=== PATIENT | male | born 1945 | race Caucasian/White ===

== ENCOUNTER 2017-02-02 23:53 | Inpatient (IN) ==
[2017-02-03 00:54] LABS: Bilirubin,Urine Negative (Negative); Blood,Urine Large (Negative); Clarity,Urine Clear (Clear); Color,Urine Yellow (Yellow); Glucose,Urine (UA) Normal (Normal); Ketones,Urine 15 mg/dL (Negative); Leukocyte Esterase,Urine Negative (Negative); Nitrite,Urine Negative (Negative); PH,Urine 5.5 pH Units (5.0-8.0); Protein,Urine Negative (Neg-Trace); Specific Gravity,Urine 1.022 (1.010-1.025); Urobilinogen,Urine Normal (Normal)
[2017-02-03 00:55] LABS: Bacteria,Urine None Seen per hpf (None-Few); Hyaline Casts,Urine None Seen per lpf (None-Few); RBC,Urine 50-100 per hpf (0-3); Squamous Epithelial Cell,Urine Few per lpf (None-Few); WBC,Urine 0-3 per hpf (0-3)
[2017-02-03 01:10] LABS: Basophils # 0.1 K/mcL (0.0-0.2); Basophils % 0.3 %; Eosinophils % 0.1 %; Hematocrit 46.1 % (37.5-50.1); Hemoglobin 15.3 g/dL (12.9-16.9); Immature Granulocytes % 0.5 % (0-4); Lymphocytes # 1.3 K/mcL (0.6-4.6); Lymphocytes % 7.2 %; Mean Corpuscular HGB Conc 33.2 g/dL (31.6-35.5); Mean Corpuscular Hemoglobin 30.5 pg (28.0-33.3); Mean Corpuscular Volume 91.8 fL (83.0-100.0); Mean Platelet Volume 8.6 fL (9.4-12.4); Monocytes # 0.7 K/mcL (0.0-1.3); Monocytes % 3.8 %; Neutrophils # 15.6 K/mcL (1.6-8.9); Platelet Count 275 K/mcL (140-400); Red Blood Count 5.02 M/mcL (4.19-5.50); Red Cell Distribution Width 12.6 % (11.5-14.5); Segmented Neutrophils % 88.1 %
[2017-02-03 01:25] LABS: Alanine Aminotransferase 16 Units/L (0-55); Albumin 4.1 g/dL (3.5-5.0); Albumin/Globulin Ratio 1.2 (1.1-2.2); Alkaline Phosphatase 95 Units/L (38-126); Aspartate Amino Transferase 19 Units/L (5-34); BUN/Creatinine Ratio 17 (6-26); Bilirubin,Direct 0.2 mg/dL (0.0-0.5); Bilirubin,Indirect 0.2 mg/dL (0.0-1.2); Bilirubin,Total 0.4 mg/dL (0.2-1.2); Blood Urea Nitrogen 19 mg/dL (8-26); Carbon Dioxide 20 mEq/L (19-29); Chloride 103 mEq/L (98-109); Globulin 3.5 g/dL (2.4-3.5); Glucose 190 mg/dL (70-99); Lipase 33 Units/L (8-78); Osmolality,Calculated 291 (280-300); Potassium 5.3 mEq/L (3.5-4.5); Sodium 137 mEq/L (136-145); Total Protein 7.6 g/dL (6.0-8.3); eGFR For African Americans > 60 (> 60); eGFR For Non-African Americans > 60 (> 60)
[2017-02-03] MEDS ORDERED: Ondansetron 4 MG/2 ML VIAL IVP ONE (01:38)
[2017-02-03] MEDS ORDERED: *HR* HYDROmorphone (PF) 1 MG/ML SYRINGE IVP ONE (01:38)
--- NOTE | 2017-02-03 01:44 | Emergency Department Note ---
Disposition Clinical Impression: Renal colic on left side, Calculus of left ureter Disposition: Admitted As Inpatient Condition: Fair Referrals: Silvia Flanagan MD [Primary Care Provider] - Forms: Work/School Release, ED Satisfaction Letter Time of Disposition: 03:04 General Adult HPI - General Chief complaint: ED Abdominal Pain Stated complaint: abd pain Time Seen by Provider: 02/03/17 00:59 Source: patient Mode of arrival: ambulatory Limitations: no limitations Nursing Notes Reviewed: Yes Vital Signs Reviewed: Yes - History of Present Illness HPI Narrative: Patient is a 71-year-old male with past medical history of insulin dependent diabetes, hypertension, hyperlipidemia, kidney stones presents with complaint of diffuse abdominal pain that started yesterday evening around 8 PM after having dinner. He states the pain came on suddenly and describes it as a severe aching pain that is diffuse with some radiation to the left side of his back. He states he also had 4 episodes of nausea and vomiting denies any blood in his vomit. Since the pain is about 10 out of 10. His pain does not feel similar to his kidney stones in the past, however he was admitted for his prior kidney stones treated in the hospital for an infection. Surgical history includes hernia repair in the 80s. Denies anything that makes the pain better or worse. Pain Scale: 10 - Related Data Allergies Allergy/AdvReac Type Severity Reaction Status Date / Time No Known Allergies Allergy Verified 02/03/17 00:10 All systems ED: reviewed and negative except as stated. Constitutional: Denies: fever, chills Cardiovascular: Denies: chest pain, palpitations Respiratory: Denies: cough, dyspnea, wheezes Gastrointestinal: Reports: abdominal pain, nausea, vomiting. Denies: diarrhea, constipation, hematemesis, melena, hematochezia Genitourinary: Denies: urgency, dysuria, frequency, hematuria Musculoskeletal: Reports: back pain Integumentary: Denies: rash Past Medical History - Past Medical History Medical history: Reports: diabetes, hyperlipidemia, hypertension Psychiatric history: Reports: no psych history - Social History Smoking Status: Never smoker Alcohol use: Reports: none Drug use: Reports: none Physical Exam Patient is sitting in bed in no acute distress. He does appear to be in mild to moderate pain and is holding pressure on his abdomen with both of his hands. He is speaking in full sentences. - General Limitations: no limitations General appearance: alert, in no apparent distress - Head Head exam: atraumatic, normocephalic, normal inspection - Eye Eye exam: Present: normal appearance, PERRL, EOMI - ENT ENT exam: normal exam, normal oropharynx, mucous membranes dry - Neck Neck exam: Present: normal inspection, full ROM, trachea midline. Absent: tenderness - Chest Chest inspection: Present: normal inspection, symmetric chest wall rise. Absent : tenderness - Respiratory Respiratory exam: Present: normal lung sounds bilaterally. Absent: respiratory distress - Cardiovascular Cardiovascular exam: Present: regular rate, normal rhythm, normal heart sounds - Abdominal Exam Abdominal exam: Present: soft, tenderness, normal bowel sounds. Absent: guarding, rebound, rigidity Abdominal tenderness: Present: suprapubic, diffuse, mild - Extremities Exam Extremities exam: Present: normal inspection, full ROM, normal capillary refill. Absent: tenderness, pedal edema - Expanded Lower Extremity Exam Neurovascular/Tendon exam: Present: normal capillary refill. Absent: pulse deficit - Back Exam Back exam: Present: normal inspection, full ROM. Absent: tenderness, CVA tenderness (R), CVA tenderness (L) - Neurological Exam Neurological exam: Present: alert, oriented X3 - Psychiatric Psychiatric exam: Present: normal affect, normal mood - Skin Skin exam: Present: warm, dry, intact, normal color. Absent: diaphoresis Course Course Narrative: Patient is a 71-year-old male with past medical history of diabetes, hypertension, hypokalemia, kidney stones presents with a complaint of diffuse aching abdominal pain has been constant started yesterday evening at 8 PM after eating a meal. So far his lab work from triage physician: Blood in his urine. Has an elevated white blood cell count at 17.7. Plan is to order a CT of the abdomen and pelvis without contrast to rule out possible kidney stone for other etiologies of the patient's pain. Also treat him for his pain and nausea while he is in the emergency department. - Reevaluation(s) Reevaluation #1: Patient states his pain initially improved and is given his first dose of Dilaudid however now is pain in his back to an 8 out of 10. Discussed with him his CT results showing a 5 mm x 9 mm stone in his left ureter at the uretopelvic junction. Discussed with him that his white count is elevated however this may be due to the inflammation and the hydronephrosis and is being caused by the stone. His urine does not show any signs of infection. Plan is to admit the patient for pain control patient agrees with this plan. Time: 02:46 Reevaluation #2: I spoke with Dr. Aroldo Wick. He states he will accept the patient and have neurology see the patient in the morning and control his pain tonight. Time: 03:05 Vital Signs Temperature 98 F 02/03/17 00:06 Pulse Rate 61 02/03/17 00:06 Respiratory Rate 20 02/03/17 00:06 Blood Pressure 148/63 02/03/17 00:06 O2 Sat by Pulse Oximetry 98 02/03/17 00:06 Temperature 98 F 02/03/17 00:06 Pulse Rate 82 02/03/17 02:10 Respiratory Rate 18 02/03/17 02:10 Blood Pressure 142/78 02/03/17 02:10 O2 Sat by Pulse Oximetry 98 02/03/17 02:10 Oxygen Delivery Oxygen Delivery Room Air Medical Decision Making - Medical Records Medical records reviewed: Yes I reviewed the patient's medical records. - Lab Data Lab results reviewed: Yes I reviewed the patient's lab results. Result diagrams: 02/03/17 00:54 02/03/17 00:54 Lab Results 02/03/17 02/03/17 02/03/17 Range/Units 00:32 00:53 00:54 WBC 17.7 H (4.3-11.1) K/mcL RBC 5.02 (4.19-5.50) M/mcL Hgb 15.3 (12.9-16.9) g/dL Hct 46.1 (37.5-50.1) % MCV 91.8 (83.0-100.0) fL MCH 30.5 (28.0-33.3) pg MCHC 33.2 (31.6-35.5) g/dL RDW 12.6 (11.5-14.5) % Plt Count 275 (140-400) K/mcL MPV 8.6 L (9.4-12.4) fL Immature Gran % 0.5 (0-4) % Seg Neutrophils % 88.1 % Lymphocytes % 7.2 % Monocytes % 3.8 % Eosinophils % 0.1 % Basophils % 0.3 % Neutrophils # 15.6 H (1.6-8.9) K/mcL Lymphocytes # 1.3 (0.6-4.6) K/mcL Monocytes # 0.7 (0.0-1.3) K/mcL Eosinophils # 0.0 (0.0-0.6) K/mcL Basophils # 0.1 (0.0-0.2) K/mcL Sodium (136-145) mEq/L Potassium (3.5-4.5) mEq/L Chloride (98-109) mEq/L Carbon Dioxide (19-29) mEq/L BUN (8-26) mg/dL Creatinine (0.72-1.25) mg/dL Est GFR ( Amer) (> 60) Est GFR (Non-Af Amer) (> 60) BUN/Creatinine Ratio (6-26) Glucose (70-99) mg/dL POC Glucose 184 H (58-89) Calculated Osmolality (280-300) Calcium (8.6-10.8) mg/dL Total Bilirubin (0.2-1.2) mg/dL Direct Bilirubin (0.0-0.5) mg/dL Indirect Bilirubin (0.0-1.2) mg/dL AST (5-34) Units/L ALT (0-55) Units/L Alkaline Phosphatase (38-126) Units/L Troponin I (0-0.03) ng/mL Serum Total Protein (6.0-8.3) g/dL Albumin (3.5-5.0) g/dL Globulin (2.4-3.5) g/dL Albumin/Globulin Ratio (1.1-2.2) Lipase (8-78) Units/L Urine Color Yellow (Yellow) Urine Clarity Clear (Clear) Urine pH 5.5 (5.0-8.0) pH Units Ur Specific [place] 1.022 (1.010-1.025) Urine Protein Negative (Neg-Trace) mg/dL Urine Glucose (UA) Normal (Normal) mg/dL Urine Ketones 15 H (Negative) mg/dL Urine Blood Large H (Negative) Urine Nitrite Negative (Negative) Urine Bilirubin Negative (Negative) Urine Urobilinogen Normal (Normal) mg/dL Ur Leukocyte Esterase Negative (Negative) Urine Microscopic RBC 50-100 H (0-3) per hpf Urine Microscopic WBC 0-3 (0-3) per hpf Ur Squamous Epith Cells Few (None-Few) per lpf Urine Bacteria None Seen (None-Few) per hpf Hyaline Casts None Seen (None-Few) per lpf Ur Culture Indicated? NO (NO) 02/03/17 02/03/17 Range/Units 00:54 00:54 WBC (4.3-11.1) K/mcL RBC (4.19-5.50) M/mcL Hgb (12.9-16.9) g/dL Hct (37.5-50.1) % MCV (83.0-100.0) fL MCH (28.0-33.3) pg MCHC (31.6-35.5) g/dL RDW (11.5-14.5) % Plt Count (140-400) K/mcL MPV (9.4-12.4) fL Immature Gran % (0-4) % Seg Neutrophils % % Lymphocytes % % Monocytes % % Eosinophils % % Basophils % % Neutrophils # (1.6-8.9) K/mcL Lymphocytes # (0.6-4.6) K/mcL Monocytes # (0.0-1.3) K/mcL Eosinophils # (0.0-0.6) K/mcL Basophils # (0.0-0.2) K/mcL Sodium 137 (136-145) mEq/L Potassium 5.3 H (3.5-4.5) mEq/L Chloride 103 (98-109) mEq/L Carbon Dioxide 20 (19-29) mEq/L BUN 19 (8-26) mg/dL Creatinine 1.15 (0.72-1.25) mg/dL Est GFR ( Amer) > 60 (> 60) Est GFR (Non-Af Amer) > 60 (> 60) BUN/Creatinine Ratio 17 (6-26) Glucose 190 H (70-99) mg/dL POC Glucose (58-89) Calculated Osmolality 291 (280-300) Calcium 10.0 (8.6-10.8) mg/dL Total Bilirubin 0.4 (0.2-1.2) mg/dL Direct Bilirubin 0.2 (0.0-0.5) mg/dL Indirect Bilirubin 0.2 (0.0-1.2) mg/dL AST 19 (5-34) Units/L ALT 16 (0-55) Units/L Alkaline Phosphatase 95 (38-126) Units/L Troponin I 0.01 (0-0.03) ng/mL Serum Total Protein 7.6 (6.0-8.3) g/dL Albumin 4.1 (3.5-5.0) g/dL Globulin 3.5 (2.4-3.5) g/dL Albumin/Globulin Ratio 1.2 (1.1-2.2) Lipase 33 (8-78) Units/L Urine Color (Yellow) Urine Clarity (Clear) Urine pH (5.0-8.0) pH Units Ur Specific [place] (1.010-1.025) Urine Protein (Neg-Trace) mg/dL Urine Glucose (UA) (Normal) mg/dL Urine Ketones (Negative) mg/dL Urine Blood (Negative) Urine Nitrite (Negative) Urine Bilirubin (Negative) Urine Urobilinogen (Normal) mg/dL Ur Leukocyte Esterase (Negative) Urine Microscopic RBC (0-3) per hpf Urine Microscopic WBC (0-3) per hpf Ur Squamous Epith Cells (None-Few) per lpf Urine Bacteria (None-Few) per hpf Hyaline Casts (None-Few) per lpf Ur Culture Indicated? (NO) - Radiology Data Radiology results reviewed: Yes I reviewed the patient's radiology results. Abdomen/Pelvis CT 02/03/17 01:39 IMPRESSION: Left-sided hydronephrosis and perinephric stranding with stones in the left kidney and at the left ureteropelvic junction. Diverticulosis without scan evidence for diverticulitis. D/ / John Villagomez MD / John Villagomez MD Interpreting Provider: John Villagomez MD - EKG Data EKG #1 EKG attestation: Yes I reviewed and interpreted this EKG. EKG results narrative: Operative this EKG. It was performed at 00:11. The patient has EKG there is sinus rhythm with sinus arrhythmia at a rate of 65. NH is 158, QRS is 113, QT is 435, QTC is 447 is all within normal limits. Patient's EKG is normal axis. No ST elevation or depression or Q waves present. No signs of infarction or ischemia. No old EKG for comparison Attestation Statement - Attestation Attestation: I personally interviewed and examined this patient and my medical decision- making was reviewed with the Resident Physician, Dr. Monte. I agree with the documented findings, disposition and treatment plan as described except to the extent set forth below. She is a 71-year-old white male with a remote history of kidney stones who presents to the emergency department with complaints of suprapubic abdominal pain as well as left flank pain. Pain began tonight approximately 8 PM sudden onset sharp and at times presentation was complaining of 10-10 pain associated with some nausea and vomiting. Patient denies any fevers or chills, no urinary symptoms no hematuria and no difficulty urinating. Patient denies any chest pain or pressure or shortness of breath no diaphoresis no other associated symptoms. Patient had labs drawn and ordered from triage was given pain control upon being brought back to the main side labs show a leukocytosis, normal renal function in large microscopic hematuria. Patient was given pain control via IV and sent for CAT scan for further evaluation of suspected renal colic secondary to kidney stone. CT scan was interpreted by radiology showing moderate hydro-on the left with a 5 x 9 mm calcification at the UPJ. Patient went with no evidence of infection in the urine. On reevaluation patient was complaining of recurrent 9 out of 10 left abdominal pain. We will premedicate patient and due to large size of stone as well as patient's ongoing pain we will admit for intractable renal colic. Case was discussed with hospitalist who accepted patient for admission for further evaluation.
[2017-02-03] MEDS ORDERED: 0.9 % Sodium Chloride 500 ML IVC ONE (01:45)
[2017-02-03] MEDS ORDERED: Ketorolac 15 MG/ML VIAL IVP ONE (02:31)
[2017-02-03] MEDS ORDERED: *HR* HYDROmorphone (PF) 1 MG/ML SYRINGE IVP PRN (03:27)
[2017-02-03] MEDS ORDERED: Naloxone 0.4 MG/ML INJ IVP PRN (03:27)
[2017-02-03] MEDS ORDERED: Ringers Solution, Lactated 1,000 ML IVC SCH (03:30)
--- NOTE | 2017-02-03 03:42 | Internal Med History&Physical ---
Date of Encounter: 02/03/17 Time of Encounter: 03:37 Assessment and Plan (1) Calculus of left ureter Current visit: Yes Status: Acute IVF. Rocephin empiric IV antibiotics due to perinephric stranding. Consult urology in the a.m - non emergent. Will place NPO in case procedure is planned (2) Renal colic on left side Current visit: Yes Status: Acute IV morphine, dilaudid for severe pain (3) DMII (diabetes mellitus, type 2) Current visit: Yes Status: Acute discussed checking CBG regularly. Instructed patient to stop mealtime bolus. 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 non-essential for now Qualifiers: Hyperlipidemia type: pure hypercholesterolemia Qualified Code(s): E78.00 - Pure hypercholesterolemia, unspecified; E78.0 - Pure hypercholesterolemia Internal Medicine - H&P: HPI Chief complaint: Left side abdominal pain History of present illness: Mr. Gilliam is a 71 year old male with hx of IDDM with insulin pump, HTN, HLD who presents with left renal colic with stones, perinephric stranding suspicious for pyelonephritis and moderate hydronephrosis. He developed epigastric region discomfort which radiated to left sided abdominal pain after supper last evening. Initially felt like a gas pain and took some gasX. No N/V. Reports hx of kidney stones 25-30 years ago. In the ED, found to have 9mm left renal stone with moderate hydro and also perinephric stranding. Past Med Surg Social Fam HX - Past Medical History Medical history: diabetes, hyperlipidemia, hypertension Psychiatric history: no psych history - Social History Smoking Status: Never smoker Alcohol use: none Drug use: none Internal Medicine - H&P: Meds Allergies No Known Allergies Allergy (Verified 02/03/17 00:10) All Systems PM: A 10-system review of systems was performed and is negative for pertinent findings except as documented above in the HPI. Review of systems: ROS 14 point review of systems reviewed as best as possible given presentation. Pertinent positive or negative as per HPI or otherwise reviewed as negative - Constitutional Vitals: Temp Pulse Resp BP Pulse Ox 0 F L 82 0 0/0 98 02/03/17 03:27 02/03/17 02:10 02/03/17 03:27 02/03/17 03:27 02/03/17 02:10 Exam: General - AAO x 3 Psych - Appropriate affect/speech. No agitation Eyes - CASS. Eye lids intact. No scleral icterus ENT - Oral mucosa pink, dentition intact. External ear clear/dry/intact. No thyromegaly Lymphatics - No cervical/inguinal lympadenopathy Neuro - No gross peripheral or central neuro deficits with intact CN 2-12 exam Heart - Sinus. RRR. S1 and S2 present. No added HS/murmurs appreciated. No elevated JVD appreciated. No calf swellings/erythema Lung - Adequate air entry b/l, No crackes/wheezes appreciated GI - left-sided abdominal pain, no guarding or rigidity , insulin pump present. No hepatosplenomegaly/ascities. BS+ - No CVA/suprapubic tenderness or palpable bladder distension Skin - Intact. No rash/petechiae/ecchymosis. Warm extremities MSK - Joints with normal ROM. No joint swellings Internal Med - H&P Results - Labs CBC & Chem 7: 02/03/17 00:54 02/03/17 00:54
[2017-02-03] MEDS ORDERED: *HR* Enoxaparin 30 MG/0.3 ML SYRINGE SQ SCH (06:00)
[2017-02-03] MEDS: *HR* Morphine 2 MG/ML SYRINGE IVP PRN ×2 (06:18→14:31)
[2017-02-03 06:59] LABS: Hematocrit 42.7 % (37.5-50.1); Hemoglobin 14.1 g/dL (12.9-16.9); Immature Platelets 1.3 % (1.1-6.1); Mean Corpuscular Hemoglobin 30.3 pg (28.0-33.3); Mean Corpuscular Volume 91.6 fL (83.0-100.0); Mean Platelet Volume 8.7 fL (9.4-12.4); Red Blood Count 4.66 M/mcL (4.19-5.50); Red Cell Distribution Width 12.7 % (11.5-14.5)
[2017-02-03 07:10] LABS: BUN/Creatinine Ratio 17 (6-26); Blood Urea Nitrogen 22 mg/dL (8-26); Calcium 9.1 mg/dL (8.6-10.8); Carbon Dioxide 24 mEq/L (19-29); Chloride 104 mEq/L (98-109); Glucose 206 mg/dL (70-99); Osmolality,Calculated 289 (280-300); Sodium 135 mEq/L (136-145); eGFR For African Americans > 60 (> 60); eGFR For Non-African Americans 56 (> 60)
[2017-02-03 07:21] LABS: Potassium 6.4 mEq/L (3.5-4.5)
--- NOTE | 2017-02-03 08:58 | Urology - Consult Note ---
Date of Encounter: 02/03/17 Time of Encounter: 08:56 - Assessment and Plan (1) Hydronephrosis Current Visit: Yes Status: Acute Assessment and plan: Plan on patient continue with IV fluids and IV antibiotics. We will plan on scheduling the patient for cystoscopy left ureteral stent placement and possible left ESWL tomorrow in the operating room. Qualifiers: Hydronephrosis type: with renal calculous obstruction Qualified Code(s): N13.2 - Hydronephrosis with renal and ureteral calculous obstruction (2) Calculus of left ureter Current Visit: Yes Status: Acute Assessment and plan: Pain is currently controlled. Please see assessment as above. Urology CN:HPI Consult date: 02/03/17 Reason for consult Urology: Hydronephrosis Requesting physician: Nika Wick History of present illness: Paul is a 71-year-old male who came to the emergency Department yesterday secondary to severe left-sided abdominal pain. Patient was found on CT scan to have a left UPJ 8 mm stone as well as a left renal 8 mm stone. Patient states that he had a stone approximately 15-20 years ago which passed on its own. Patient did have an elevated WBC count upon arrival to the hospital. This has improved with fluids and antibiotics. Patient denies any nausea or vomiting at this time. No fevers. Past Med Surg Social Fam HX - Past Medical History Medical history: diabetes, hyperlipidemia, hypertension, kidney stones Psychiatric history: no psych history - Past Surgical History Surgical History: herniorrhaphy - Social History Smoking Status: Never smoker Smokeless Tobacco Status: No Alcohol use: none Drug use: none - Family History Grandmother Hx Family Endocrine Disorder: Yes (diabetes) Medications and Allergies Aspirin [Lo-Dose Aspirin EC] 81 mg PO DAILY 02/03/17 [History] Atorvastatin [Lipitor] 5 mg PO HS 02/03/17 [History] Insulin LISPRO [HumaLOG] 30 - 40 units SQ DAILY 02/03/17 [History] Lisinopril [Zestril] 10 mg PO DAILY 02/03/17 [History] Metformin HCl [Glucophage] 1,000 mg PO BID 02/03/17 [History] Allergies No Known Allergies Allergy (Verified 02/03/17 00:10) Review of Systems - Constitutional no chills, no fever(s) - EENT Nose, mouth and throat: no dizziness - Cardiovascular no chest pain - Respiratory no cough - Gastrointestinal as per HPI - Genitourinary no difficulty urinating - Musculoskeletal no back pain - Integumentary no erythema - Neurological no confusion - Psychiatric no anxiety Exam Initial Vital Signs Temp Pulse Resp BP Pulse Ox 98 F 61 20 148/63 98 02/03/17 00:06 02/03/17 00:06 02/03/17 00:06 02/03/17 00:06 02/03/17 00:06 - General physical appearance Present: well developed - Eyes Present: PERRL - ENT Present: normal nares - Neck Present: no masses - Respiratory Present: normal respiratory effort - Cardiovascular Cardiovascular exam IM: RRR - Abdomen Abdomen: Present: soft - Integumentary Present: no rash - Neurologic Present: normal coordination Urology Results - Labs 02/03/17 06:24 02/03/17 06:24 Abnormal lab results WBC 13.8 K/mcL (4.3-11.1) H 02/03/17 06:24 MPV 8.7 fL (9.4-12.4) L 02/03/17 06:24 Neutrophils # 15.6 K/mcL (1.6-8.9) H 02/03/17 00:54 Sodium 135 mEq/L (136-145) L 02/03/17 06:24 Potassium 6.4 mEq/L (3.5-4.5) H D 02/03/17 06:24 Creatinine 1.28 mg/dL (0.72-1.25) H 02/03/17 06:24 Est GFR (Non-Af Amer) 56 (> 60) L 02/03/17 06:24 Glucose 206 mg/dL (70-99) H 02/03/17 06:24 POC Glucose 227 (58-89) H 02/03/17 05:03 Urine Ketones 15 mg/dL (Negative) H 02/03/17 00:32 Urine Blood Large (Negative) H 02/03/17 00:32 Urine Microscopic RBC 50-100 per hpf (0-3) H 02/03/17 00:32 Diabetes panel 02/03/17 Range/Units 06:24 Sodium 135 L (136-145) mEq/L Potassium 6.4 H D (3.5-4.5) mEq/L Chloride 104 (98-109) mEq/L Carbon Dioxide 24 (19-29) mEq/L BUN 22 (8-26) mg/dL Creatinine 1.28 H (0.72-1.25) mg/dL Glucose 206 H (70-99) mg/dL Calcium 9.1 (8.6-10.8) mg/dL Calcium panel 02/03/17 Range/Units 06:24 Calcium 9.1 (8.6-10.8) mg/dL Pituitary panel 02/03/17 Range/Units 06:24 Sodium 135 L (136-145) mEq/L Potassium 6.4 H D (3.5-4.5) mEq/L Chloride 104 (98-109) mEq/L Carbon Dioxide 24 (19-29) mEq/L BUN 22 (8-26) mg/dL Creatinine 1.28 H (0.72-1.25) mg/dL Glucose 206 H (70-99) mg/dL Calcium 9.1 (8.6-10.8) mg/dL Adrenal panel 02/03/17 Range/Units 06:24 Sodium 135 L (136-145) mEq/L Potassium 6.4 H D (3.5-4.5) mEq/L Chloride 104 (98-109) mEq/L Carbon Dioxide 24 (19-29) mEq/L BUN 22 (8-26) mg/dL Creatinine 1.28 H (0.72-1.25) mg/dL Glucose 206 H (70-99) mg/dL Calcium 9.1 (8.6-10.8) mg/dL All other labs normal. Consult Discharge Plan - Plan Referrals: Silvia Flanagan MD [Primary Care Provider] -
[2017-02-03] MEDS ORDERED: *HR* Dextrose 50 % in Water (Syg) 50 ML SYRINGE IVP PRN (11:58)
[2017-02-03] MEDS ORDERED: Dextrose Gel 15 GM PO PRN ×2 (11:58)
[2017-02-03] MEDS ORDERED: D5% in Water 1,000 ML IVC PRN (11:58)
[2017-02-03] MEDS ORDERED: Patient Taking Own Medication 1 EACH PO SCH (12:15)
[2017-02-03] MEDS: 0.9 % Sodium Chloride 1,000 ML IVC SCH (14:30)
--- NOTE | 2017-02-03 15:41 | Event Note ---
Date of Encounter: 02/03/17 Time of Encounter: 10:10 Patient is feeling much better at this time. Tolerating diet well. Pain is well controlled. Denies dysuria. Urology has been consulted. We will follow their recommendations. Possible cystoscopy and ESWL planned for tomorrow. Continue IV antibiotics.
--- NOTE | 2017-02-03 19:16 | Anesthesia Evaluation PreOp ---
Date of Encounter: 02/03/17 Time of Encounter: 19:15 - Past History Planned Operation: Left ESWL, Cysto, Stent Cardiac History: HTN, Hyperlipidemia Pulmonary History: Denies Any Significant HX SKINNER PELTS History: Denies Any Significant HX Other Medical History: Renal ([place]), Diabetes Type I (Insulin Pump) Anesthesia History: No Prior Anesthetic Complications Alcohol Use: none Drug use: none Medications and Allergies Aspirin [Lo-Dose Aspirin EC] 81 mg PO DAILY 02/03/17 [History] Atorvastatin [Lipitor] 5 mg PO HS 02/03/17 [History] Insulin LISPRO [HumaLOG] 30 - 40 units SQ DAILY 02/03/17 [History] Lisinopril [Zestril] 10 mg PO DAILY 02/03/17 [History] Metformin HCl [Glucophage] 1,000 mg PO BID 02/03/17 [History] Allergies No Known Allergies Allergy (Verified 02/03/17 00:10) Anesthesia Results - Labs 02/03/17 06:24 02/03/17 08:35 Laboratory Tests 02/03/17 02/03/17 02/03/17 06:24 06:24 08:35 Hgb 14.1 Hct 42.7 Plt Count 281 Sodium 135 L Potassium 5.5 H BUN 22 Creatinine 1.28 H - Imaging EKG: pending Anesthesia Exam O2 Sat Height 1.83 m Height 1.83 m Weight 90.401 kg Weight 90.809 kg O2 Sat by Pulse Oximetry 95 O2 Sat by Pulse Oximetry 96 O2 Sat by Pulse Oximetry 96 O2 Sat by Pulse Oximetry 93 O2 Sat by Pulse Oximetry 98 O2 Sat by Pulse Oximetry 98 Vital Signs Temp Pulse Resp BP Pulse Ox 98 F 61 20 148/63 98 02/03/17 00:06 02/03/17 00:06 02/03/17 00:06 02/03/17 00:06 02/03/17 00:06 Height: 6'0 Weight: 199 lbs NPO (# of Hours): MN Pain Scale: 0 - HEENT Pupil (Motor): Pupils equal, EOMI Mallampati: II Teeth: Normal Oral Opening: Greater than 3 - SKINNER PELTS LOC: Oriented SKINNER PELTS Motor: Normal RUE, Normal LUE, Normal RLE, Normal LLE, Normal Face SKINNER PELTS Sensory: Normal: RUE, LUE, RLE, LLE, Face - Cardiac Rhythm: Regular Murmur: None JVD: No Carotid Bruit: No - Pulmonary Breath Sounds: bilateral Clear Respiratory Effort: Symmetrical Anesthesia Assess/Plan ASA Score: 3 (IDDM HTN) Modified Fam Scale for Level of Consciousness: Cooperative, oriented, and tranquil Anesthetic Plan: General Monitoring Plan: Standard Monitors Recovery Plan: PACU (Discussed GA, agrees to proceed)
--- NOTE | 2017-02-03 20:29 | Electrocardiograph Report ---
[place] [id number] Test Date: 2017-02-03 Pat Name: Paul Gilliam Department: 105 Room: 3A42 Gender: M [employer] Supervisor: : [id number] Requested By: Eulalio Hernandez Order Number: [id number] Reading MD: Sidney Mas MD Measurements Intervals [place] Rate: 65 P: 41 TX: 158 QRS: -7 QRSD: 113 T: 66 QT: 435 QTc: 447 Interpretive Statements SINUS RHYTHM WITH SINUS ARRHYTHMIA Electronically Signed On 02-03-2017 20:27:53 EDT by Sidney Mas MD
[2017-02-04] MEDS: *HR* Morphine 2 MG/ML SYRINGE IVP PRN ×4 (00:11→13:13)
[2017-02-04] MEDS: 0.9 % Sodium Chloride 1,000 ML IVC SCH ×5 (00:12→22:03)
[2017-02-04 05:46] LABS: Hemoglobin 13.2 g/dL (12.9-16.9); Mean Corpuscular HGB Conc 33.8 g/dL (31.6-35.5); Mean Corpuscular Hemoglobin 31.1 pg (28.0-33.3); Mean Platelet Volume 8.6 fL (9.4-12.4); Platelet Count 212 K/mcL (140-400); Red Blood Count 4.24 M/mcL (4.19-5.50); Red Cell Distribution Width 12.9 % (11.5-14.5)
[2017-02-04 05:59] LABS: Calcium 8.5 mg/dL (8.6-10.8); Potassium 4.6 mEq/L (3.5-4.5)
--- NOTE | 2017-02-04 07:06 | Urology Progress Note ---
Date of Encounter: 02/04/17 Time of Encounter: 07:05 - Assessment and Plan (1) Hydronephrosis Current Visit: Yes Status: Acute Assessment and plan: to OR today for stent and possible tx of stone with ESWL Qualifiers: Hydronephrosis type: with renal calculous obstruction Qualified Code(s): N13.2 - Hydronephrosis with renal and ureteral calculous obstruction (2) Calculus of left ureter Current Visit: Yes Status: Acute (3) Elevated serum creatinine Current Visit: Yes Status: Acute Assessment and plan: expect to resolve after stenting today Progress Note Narrative: patient seen. having increased pain. no fevers. serum creatinine rising. Objective Initial Vital Signs Temp Pulse Resp BP Pulse Ox 98 F 61 20 148/63 98 02/03/17 00:06 02/03/17 00:06 02/03/17 00:06 02/03/17 00:06 02/03/17 00:06 - General physical appearance Present: well developed - Abdomen Present: soft - Labs 02/04/17 05:08 02/04/17 05:08 Diabetes panel 02/03/17 02/03/17 02/04/17 Range/Units 06:24 08:35 05:08 Sodium 135 L 135 L (136-145) mEq/L Potassium 6.4 H D 5.5 H 4.6 H (3.5-4.5) mEq/L Chloride 104 107 (98-109) mEq/L Carbon Dioxide 24 23 (19-29) mEq/L BUN 22 23 (8-26) mg/dL Creatinine 1.28 H 1.81 H (0.72-1.25) mg/dL Glucose 206 H 152 H (70-99) mg/dL Calcium 9.1 8.5 L (8.6-10.8) mg/dL Calcium panel 02/03/17 02/04/17 Range/Units 06:24 05:08 Calcium 9.1 8.5 L (8.6-10.8) mg/dL Pituitary panel 02/03/17 02/03/17 02/04/17 Range/Units 06:24 08:35 05:08 Sodium 135 L 135 L (136-145) mEq/L Potassium 6.4 H D 5.5 H 4.6 H (3.5-4.5) mEq/L Chloride 104 107 (98-109) mEq/L Carbon Dioxide 24 23 (19-29) mEq/L BUN 22 23 (8-26) mg/dL Creatinine 1.28 H 1.81 H (0.72-1.25) mg/dL Glucose 206 H 152 H (70-99) mg/dL Calcium 9.1 8.5 L (8.6-10.8) mg/dL Adrenal panel 02/03/17 02/03/17 02/04/17 Range/Units 06:24 08:35 05:08 Sodium 135 L 135 L (136-145) mEq/L Potassium 6.4 H D 5.5 H 4.6 H (3.5-4.5) mEq/L Chloride 104 107 (98-109) mEq/L Carbon Dioxide 24 23 (19-29) mEq/L BUN 22 23 (8-26) mg/dL Creatinine 1.28 H 1.81 H (0.72-1.25) mg/dL Glucose 206 H 152 H (70-99) mg/dL Calcium 9.1 8.5 L (8.6-10.8) mg/dL Consult Discharge Plan - Plan Referrals: Vasquez Blanco MD [Partnered Physician] - Silvia Flanagan MD [Primary Care Provider] -
[2017-02-04] MEDS ORDERED: Ondansetron 4 MG/2 ML VIAL IVP PRN ×2 (08:24→18:30)
[2017-02-04] MEDS ORDERED: Ondansetron 4 MG/2 ML VIAL ONE ×2 (08:26→16:09)
[2017-02-04] MEDS ORDERED: *HR* OxyCODONE/APAP 5/325 TABLET PO PRN ×2 (10:57→18:30)
[2017-02-04] MEDS ORDERED: *HR* FentaNYL (PF) 100 MCG/2 ML VIAL ONE (15:23)
[2017-02-04] MEDS ORDERED: *HR* Propofol 200 MG/20 ML VIAL IVP ONE (15:23)
[2017-02-04] MEDS ORDERED: Lidocaine -MPF 2% 2 ML VIAL ONE (15:24)
--- NOTE | 2017-02-04 15:28 | Internal Med Progress Note ---
Date of Encounter: 02/04/17 Time of Encounter: 09:10 - Assessment and plan (1) Hydronephrosis Current Visit: Yes Status: Acute Assessment and plan: Continue IV antibiotics. IV hydration. Cystoscopy with ESWL and stone retrieval plan for later today. Continue pain management with intravenous narcotic medications. Moderate risk for complications. Qualifiers: Hydronephrosis type: with renal calculous obstruction Qualified Code(s): N13.2 - Hydronephrosis with renal and ureteral calculous obstruction (2) Renal colic on left side Current Visit: Yes Status: Acute Assessment and plan: Continue medical management with intravenous hydration and IV narcotic pain medications. Urology following. Plan for cystoscopy with ESWL and stone retrieval later today. (3) Calculus of left ureter Current Visit: Yes Status: Acute Assessment and plan: Continue current management with IV antibiotics. Urology following. (4) DMII (diabetes mellitus, type 2) Current Visit: Yes Status: Chronic Assessment and plan: Fairly controlled blood sugars. Continue to monitor with sliding scale insulin and diabetic diet post surgery. 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 Will place patient on intravenous medications for blood pressure greater than 160. Qualifiers: Hypertension type: essential hypertension Qualified Code(s): I10 - Essential (primary) hypertension (6) HLD (hyperlipidemia) Current Visit: Yes Status: Chronic Assessment and plan: Will resume statin Qualifiers: Hyperlipidemia type: mixed hyperlipidemia Qualified Code(s): E78.2 - Mixed hyperlipidemia (7) Elevated serum creatinine Current Visit: Yes Status: Acute Assessment and plan: Due to obstructive uropathy. This should improve after obstruction is relieved. Continue to monitor renal function and continue IV hydration. - Subjective Interval history: Patient had a rough night with severe flank pain bilaterally. He received multiple doses of intravenous narcotic medications which seemed to finally control the pain. This morning he feels some discomfort in his mid abdomen. Passing urine without any hematuria. - Constitutional Vitals: Temp Pulse Resp BP Pulse Ox 98.4 F 77 15 136/74 95 02/04/17 11:00 02/04/17 11:00 02/04/17 11:00 02/04/17 11:00 02/04/17 11:00 General appearance: Present: cooperative, mild distress, A&O X 3, answers questions appropriately - Neck Neck exam general surgery: Present: supple, trachea midline. Absent: lymphadenopathy - Respiratory Respiratory exam: Present: CTAB. Absent: accessory muscle use, rales, rhonchi, wheezes - Cardiovascular Cardiovascular exam: Present: RRR, +S1, +S2. Absent: diastolic murmur, gallop, rubs, systolic murmur - GI/Abdominal GI/Abdominal exam: Present: normal bowel sounds, soft, tenderness (Mild generalized), no peritoneal signs. Absent: distended - Extremities Exam Extremities exam: Present: warm, radial pulses palpable and symmetrical. Absent : calf tenderness, cyanotic, pedal edema - Neurological Exam Neurological exam: Present: alert, oriented X3, no focal deficits. Absent: speech deficit Internal Medicine: Result - Labs CBC & Chem 7: 02/04/17 05:08 02/04/17 05:08 Labs: Short CBC 02/04/17 Range/Units 05:08 WBC 11.7 H (4.3-11.1) K/mcL Hgb 13.2 (12.9-16.9) g/dL Hct 39.0 (37.5-50.1) % Plt Count 212 (140-400) K/mcL [facility] 02/04/17 05:08 Sodium 135 L Potassium 4.6 H Chloride 107 Carbon Dioxide 23 BUN 23 Creatinine 1.81 H Glucose 152 H Calcium 8.5 L Consult Discharge Plan - Plan Referrals: Vasquez Blanco MD [Partnered Physician] - Silvia Flanagan MD [Primary Care Provider] -
[2017-02-04] MEDS ORDERED: *HR* Midazolam HCl 2 MG/2 ML VIAL ONE (15:41)
--- NOTE | 2017-02-04 15:44 | Electrocardiograph Report ---
[place] [id number] Test Date: 2017-02-04 Pat Name: Paul Gilliam Department: 115 Room: 3A42 Gender: M [employer] Professor: VÍCTOR : 1945 Requested By: Priyank Gupta Order Number: [id number] Reading MD: Priyank Miller Measurements Intervals [place] Rate: 69 P: 34 WV: 153 QRS: -7 QRSD: 112 T: 52 QT: 375 QTc: 395 Interpretive Statements SINUS RHYTHM MODERATE INTRAVENTRICULAR CONDUCTION DELAY Electronically Signed On 02-04-2017 15:42:46 EDT by Priyank Miller
[2017-02-04] MEDS ORDERED: Dexamethasone 4 MG/ML VIAL ONE (16:09)
[2017-02-04] MEDS ORDERED: *HR* HYDROmorphone (PF) 1 MG/ML SYRINGE IVP PRN (16:25)
[2017-02-04] MEDS ORDERED: *HR* Morphine 2 MG/ML SYRINGE IVP PRN ×2 (16:25→18:30)
[2017-02-04] MEDS ORDERED: Ondansetron 4 MG/2 ML VIAL IVP ONE (16:25)
[2017-02-04] MEDS ORDERED: *HR* Promethazine 25 MG/ML VIAL IVP PRN (16:25)
[2017-02-04] MEDS ORDERED: EPHEDrine 50 MG/ML VIAL ONE (16:42)
--- NOTE | 2017-02-04 17:09 | Operative Note ---
Date of procedure: 02/04/17 Pre-op diagnosis: left upj stone Post-op diagnosis: same Procedure: Cystoscopy, left 4.8 x 28 cm ureteral stent placement, left extracorporeal shockwave lithotripsy Anesthesia: KWASI Surgeon: Vasquez Blanco Condition: stable Disposition: PACU Procedure in Detail: Patient was prepped and draped in normal sterile fashion. Timeout procedure performed. I then inserted the cystoscope into the patient's bladder. The left ureteral orifice was then cannulated using a Glidewire. I then placed a 4.8 x 28 cm ureteral stent with good curl seen in the left kidney and in the bladder. Hydronephrotic drip was seen without any pus noted. At this point the lithotripsy was performed using the device. The medial stone was positioned in the X, Y, Z planes. I then was able to the liver just over 1000 shocks to the stone which showed excellent fragmentation. Patient then started to have PACs and PVCs. We held the shocks and gated the machine. Patient continued with PACs. At this point the medial stone had shown excellent fragmentation so I switched the device to the lateral stone. I was able to deliver the remaining 1400 shocks to the lateral stone which showed excellent fragmentation at the end of the procedure. Patient tolerated well and was taken to PACU in stable condition.
--- NOTE | 2017-02-04 18:10 | Anesthesia Evaluation Post Op ---
Date of Encounter: 02/04/17 Time of Encounter: 18:09 - Vital Signs Vital Signs: Last Vital Signs Temp 98.6 F 02/04/17 18:05 Pulse 75 02/04/17 18:05 Resp 18 02/04/17 18:05 BP 146/71 02/04/17 18:05 Pulse Ox 94 02/04/17 18:05 - Lungs Lungs: Clear Ascult./Percussion - Airway Airway: Non-obstructed - Cardiovascular Regular Rate - Mental Status Mental Status: Alert & Oriented, Answers Appropriately - Pain Pain Scale: 3 - Nausea Vomiting Nausea Vomiting: Not Present - Hydration Hydration: NPO - Discharge PostOp Status: Transfer Patient to floor
[2017-02-04] MEDS ORDERED: Naloxone 0.4 MG/ML INJ IVP PRN (18:30)
[2017-02-04] MEDS ORDERED: D5% in Water 1,000 ML IVC PRN (18:30)
[2017-02-05 05:52] LABS: BUN/Creatinine Ratio 18 (6-26); Blood Urea Nitrogen 18 mg/dL (8-26); Calcium 8.5 mg/dL (8.6-10.8); Carbon Dioxide 24 mEq/L (19-29); Chloride 109 mEq/L (98-109); Glucose 189 mg/dL (70-99); Osmolality,Calculated 291 (280-300); Potassium 4.9 mEq/L (3.5-4.5); Sodium 137 mEq/L (136-145); eGFR For African Americans > 60 (> 60); eGFR For Non-African Americans > 60 (> 60)
[2017-02-05 05:57] LABS: Hematocrit 38.5 % (37.5-50.1); Hemoglobin 12.9 g/dL (12.9-16.9); Mean Corpuscular HGB Conc 33.5 g/dL (31.6-35.5); Mean Corpuscular Hemoglobin 31.2 pg (28.0-33.3); Mean Corpuscular Volume 93.2 fL (83.0-100.0); Mean Platelet Volume 8.6 fL (9.4-12.4); Platelet Count 198 K/mcL (140-400); Red Blood Count 4.13 M/mcL (4.19-5.50)
--- NOTE | 2017-02-05 06:58 | Urology Progress Note ---
Date of Encounter: 02/05/17 Time of Encounter: 06:57 - Assessment and Plan (1) Hydronephrosis Current Visit: Yes Status: Acute Qualifiers: Hydronephrosis type: with renal calculous obstruction Qualified Code(s): N13.2 - Hydronephrosis with renal and ureteral calculous obstruction (2) Calculus of left ureter Current Visit: Yes Status: Acute Assessment and plan: sp left ESWL and stenting. ok to dc from urology standpoint recommend oxybutynin 5mg po bid for 5 days to help with urgency. appt made (3) Elevated serum creatinine Current Visit: Yes Status: Acute Progress Note Narrative: patient seen. feeling much better. with some urinary urgency Objective Initial Vital Signs Temp Pulse Resp BP Pulse Ox 98 F 61 20 148/63 98 02/03/17 00:06 02/03/17 00:06 02/03/17 00:06 02/03/17 00:06 02/03/17 00:06 - General physical appearance Present: well developed - Abdomen Present: soft - Labs 02/05/17 05:31 02/05/17 05:31 Diabetes panel 02/05/17 Range/Units 05:31 Sodium 137 (136-145) mEq/L Potassium 4.9 H (3.5-4.5) mEq/L Chloride 109 (98-109) mEq/L Carbon Dioxide 24 (19-29) mEq/L BUN 18 (8-26) mg/dL Creatinine 0.99 (0.72-1.25) mg/dL Glucose 189 H (70-99) mg/dL Calcium 8.5 L (8.6-10.8) mg/dL Calcium panel 02/05/17 Range/Units 05:31 Calcium 8.5 L (8.6-10.8) mg/dL Pituitary panel 02/05/17 Range/Units 05:31 Sodium 137 (136-145) mEq/L Potassium 4.9 H (3.5-4.5) mEq/L Chloride 109 (98-109) mEq/L Carbon Dioxide 24 (19-29) mEq/L BUN 18 (8-26) mg/dL Creatinine 0.99 (0.72-1.25) mg/dL Glucose 189 H (70-99) mg/dL Calcium 8.5 L (8.6-10.8) mg/dL Adrenal panel 02/05/17 Range/Units 05:31 Sodium 137 (136-145) mEq/L Potassium 4.9 H (3.5-4.5) mEq/L Chloride 109 (98-109) mEq/L Carbon Dioxide 24 (19-29) mEq/L BUN 18 (8-26) mg/dL Creatinine 0.99 (0.72-1.25) mg/dL Glucose 189 H (70-99) mg/dL Calcium 8.5 L (8.6-10.8) mg/dL - VTE Documentation of Mechanical Device: Intermittent pneumatic compression device Consult Discharge Plan - Plan Referrals: Vasquez Blanco MD [Partnered Physician] - Silvia Flanagan MD [Primary Care Provider] -
[2017-02-05 08:12] VITALS: BP 153/74
--- NOTE | 2017-02-05 08:51 | Discharge Summary ---
Date of Encounter: 02/05/17 Time of Encounter: 08:48 - Discharge Diagnosis (1) Hydronephrosis Priority: Primary Status: Acute Qualifiers: Hydronephrosis type: with renal calculous obstruction Qualified Code(s): N13.2 - Hydronephrosis with renal and ureteral calculous obstruction (2) Renal colic on left side Priority: Secondary Status: Acute (3) Calculus of left ureter Priority: Secondary Status: Acute (4) DMII (diabetes mellitus, type 2) Priority: Secondary Status: Chronic Qualifiers: Diabetes mellitus complication status: without complication Diabetes mellitus intermediate school teacher insulin use: with intermediate school teacher use Qualified Code(s): E11.9 - Type 2 diabetes mellitus without complications; Z79.4 - USP (current) use of insulin (5) HTN (hypertension) Priority: Secondary Status: Chronic Qualifiers: Hypertension type: essential hypertension Qualified Code(s): I10 - Essential (primary) hypertension (6) HLD (hyperlipidemia) Priority: Secondary Status: Chronic Qualifiers: Hyperlipidemia type: mixed hyperlipidemia Qualified Code(s): E78.2 - Mixed hyperlipidemia (7) Elevated serum creatinine Priority: Secondary Status: Acute - Discharge Medications Prescriptions: Ciprofloxacin [Cipro] 500 mg PO BID #10 tablet Oxybutynin [Ditropan] 5 mg PO BID #10 tablet Home Medications: Aspirin [Lo-Dose Aspirin EC] 81 mg PO DAILY 02/03/17 [History] Atorvastatin [Lipitor] 5 mg PO HS 02/03/17 [History] Insulin LISPRO [HumaLOG] 30 - 40 units SQ DAILY 02/03/17 [History] Lisinopril [Zestril] 10 mg PO DAILY 02/03/17 [History] Metformin HCl [Glucophage] 1,000 mg PO BID 02/03/17 [History] Ciprofloxacin [Cipro] 500 mg PO BID #10 tablet 02/05/17 [Rx] Oxybutynin [Ditropan] 5 mg PO BID #10 tablet 02/05/17 [Rx] Allergies/Adverse Reactions: Allergies No Known Allergies Allergy (Verified 02/03/17 00:10) Procedures/tests Complete & Pending: Procedures Performed prior 72 hours Category Date Time Status ECG 12 lead ECG [ECG] AM 0600 Y 02/04/17 06:00 Completed Date of admission: 02/03/17 03:27 Primary care physician: Silvia Patrick Consults: 02/03/17 03:32 Consult to Urology [CONS] Routine Consulting Provider: Freya Ortiz Reason for Consult: kidney stone, perinephric stranding, hydro moderate Call Completed: No Discharging clinician: James Wing Anticipated date of discharge: 02/05/17 - Patient Status Disposition: Home, Self-Care Condition: Good Functional capacity at discharge: independent ambulation Overall status at discharge: patient is back to baseline - Discharge Instructions Instructions: Diabetes Mellitus Type 2 in Adults (DC), Chronic Hypertension (DC ) Follow Up With: Vasquez Blanco MD [Partnered Physician] - 02/18/17 9:30 am (in 1-2 weeks) Silvia Flanagan MD [Primary Care Provider] - 02/11/17 9:30 am ( in 1-2 weeks) - Diet and Activity Activity: increase activity as tolerated Diet: advance to your usual diet Hospital course: Mr. Gilliam is a 71 year old male patient with a history of essential hypertension, diabetes mellitus type 2, hyperlipidemia who was admitted here with left-sided renal colic and renal calculus in the left ureteropelvic junction with hydronephrosis and perinephric stranding. Was treated with IV fluids, IV antibiotics and urology was consulted. Patient also had acute kidney injury related to obstructive uropathy. He underwent cystoscopy with ESWL and ureteral stent placement into the left ureter. Since then his renal function has normalized. Patient is pain-free and resting discharged home. He will complete a short course of antibiotics and will follow up with urology as outpatient. He is also being discharged on oxybutynin for symptom relief from urinary frequency. - Time Spent with Patient Total time spent providing and/or coordinating discharge services: Less than 30 minutes (25 min) - Constitutional Vitals: Temp Pulse Resp BP Pulse Ox 98.0 F 68 16 153/74 97 02/05/17 08:04 02/05/17 08:04 02/05/17 08:04 02/05/17 08:04 02/05/17 08:04 General appearance: Present: cooperative, mild distress, A&O X 3, answers questions appropriately - Respiratory Respiratory exam: Present: CTAB. Absent: accessory muscle use, rales, rhonchi, wheezes - Cardiovascular Cardiovascular exam: Present: RRR, +S1, +S2. Absent: diastolic murmur, gallop, rubs, systolic murmur - GI/Abdominal GI/Abdominal exam: Present: normal bowel sounds, soft, no peritoneal signs. Absent: distended, tenderness - VTE Documentation of Mechanical Device: Intermittent pneumatic compression device
[2017-02-05] MEDS ORDERED: Patient Taking Own Medication 1 EACH SQ SCH (09:00)
== END 2017-02-05 10:49 | disposition home or self-care (01) | DRG 669 ==
LOC: EMEROO 23:53 → 3ANU 23:53
PROVIDERS: ADMIT Internal Medicine Hematology & Oncology; ATTEND Internal Medicine
PROC: UROLITH (2017-02-04 16:00)